=== PATIENT | male | born 1940 | race Caucasian/White ===

== ENCOUNTER 2022-02-25 08:37 | Day surgery (SDC) | payer OTHER ==
[~2022-02-25] VITALS: Ht 172.7 cm; Wt 82.0 kg
[2022-02-25] MEDS ORDERED: Amlodipine Bes2.5 MG PO (09:07)
[2022-02-25] MEDS ORDERED: BISA10S (09:07)
[2022-02-25] MEDS ORDERED: BACLOFEN5 M1 PO (09:07)
[2022-02-25] MEDS ORDERED: TRAZ50 PO (09:08)
[2022-02-25] MEDS ORDERED: TRAM50 PO (09:08)
[2022-02-25] MEDS ORDERED: CLOP75 PO (09:08)
[2022-02-25] MEDS ORDERED: Triamcinolone A15 G3 TOP (09:09)
--- NOTE | 2022-02-25 10:30 | NUR ---
02/25/[address] SPOKE WITH SON VEE LITTLE TO DISCUSS HEALTH HISTORY. CAREGIVER VICKIE AT BEDSIDE. CALL LIGHT WITHIN REACH. BED IN LOWEST POISTION. SIDE RAIL UP X1, CAREGIVER ON SIDE THAT IS DOWN.
--- NOTE | 2022-02-25 11:00 | NUR ---
02/25/22 1100 RAINA KAUR PURPLE DISCOLORATION NOTED TO RIGHT POINTER FINGER, DR. MILLER AWARE.
--- NOTE | 2022-02-25 13:59 | NUR ---
02/25/22 1359 Krunal Dumont DISCHARGE ASSESSMENT AND VASCULAR ACCESS ASSESSMENT OCCURRED IN STEP DOWN BUT WERE CHARTED IN PACU, BECAUSE STEP DOWN CHART COULD NOT BE ACCESSED IN COMPUTER.
--- NOTE | 2022-02-26 09:48 | NUR ---
02/26/22 0948 JuliaKrunal PT STILL SLEEPY AT TIME OF DISCHARGE, ONLY WAKING FOR BRIEF PERIODS. HE WAS ABLE TO MOVE HANDS AND LEGS. THIS IS BASELINE ACTIVITY LEVEL FOR PT AT THIS TIME OF DAY, PER HIS CAREGIVER VICKIE. O2 SATURATION ALSO DROPPED TO 88-90% FOR SEVERAL TIMES FOR LESS THAN 30 SECONDS EACH TIME. IT RETURNED TO NORMAL LIMITS SPONTANEOUSLY. CAREGIVER STATES THIS IS NORMAL FOR PATIENT, WELL AND VITAL SIGNS ARE MONITORED AT THE FACILITY WHERE HE LIVES. CAREGIVER DID NOT HAVE DISCHARGE INSTRUCTIONS UPON DEPARTURE. INSTRUCTIONS WERE FAXED TO [facility] [facility] AT HER REQUEST THREE TIMES. FAX DID NOT GO THROUGH THE FIRST TWO TIME, PER CAREGIVER. CAREGIVER STATES SHE WILL MEDIA RELATIONS COORDINATOR INSTRUCTIONS THIS MORNING IF THIRD ATTEMPT IS UNSUCCESSFUL.
== END 2022-02-25 15:00 | disposition home or self-care (01) ==
LOC: ORSCSDS 08:37
PROVIDERS: Orthopaedic Surgery
PROC: 0JN Subcutaneous Tissue and Fascia, Release (ICD-10-PCS; principal; 2022-02-25 10:30)
PROC: 0L850ZZ Division of Right Lower Arm and Wrist Tendon, Open Approach (ICD-10-PCS; principal; 2022-02-25 10:30)
DX: M72.0 Palmar fascial fibromatosis [Dupuytren] (principal); I69.398 Other sequelae of cerebral infarction; F03.90 Unspecified dementia, unspecified severity, without behavioral disturbance, psychotic disturbance, mood disturbance, and anxiety; E78.5 Hyperlipidemia, unspecified; I10 Essential (primary) hypertension; F43.10 Post-traumatic stress disorder, unspecified; Z79.02 Long term (current) use of antithrombotics/antiplatelets; Z79.899 Other long term (current) drug therapy
CPT/HCPCS: 93005; 93010; J0171; J0690; J1100; J1885; J2250; J2405; J2704; J2795; J3010; J7120